=== PATIENT | female | born 1945 | race Two or more races ===

== ENCOUNTER → 2020-05-06 | Outpatient (CLI) | payer MEDICARE ==
[2016-10-02 09:18] VITALS: BP 142/83
[~2020-05-06] MED LIST: AMLO5TAB10 PO; GABA300C18 PO; HYDR-2765 PO; LISI-334 PO; SIMV10TA15 PO
--- NOTE | 2020-05-06 16:42 | RAD ---
Whole body bone scan History: Breast cancer Comparison: None. Procedure: 25.0 mCI of Tc 99m MDP was injected intravenously and delayed scintigraphic images were obtained of the skeletal system. Findings: No abnormal radiopharmaceutical uptake suspicious for bony metastases. There is symmetric uptake in the shoulder joints bilaterally, and the sternoclavicular joints, knees and at the ankles, compatible with degenerative change. Impression: 1. No evidence of bony metastases. Electronically signed by: Devi Goddard MD (05/06/2020 4:39 PM) [id number]
== END | disposition home or self-care (01) ==
LOC: NM 10:05
PROVIDERS: ATTEND Internal Medicine Hematology & Oncology
DX: C50.011 Malignant neoplasm of nipple and areola, right female breast (principal); C50.511 Malignant neoplasm of lower-outer quadrant of right female breast; Z17.1 Estrogen receptor negative status [ER-]
CPT/HCPCS: 78306; A9503

== ENCOUNTER → 2021-01-29 | Outpatient (CLI) | payer MEDICARE ==
[2016-10-02 09:18] VITALS: BP 142/83
[~2021-01-29] MED LIST changes: +AMLO-186 PO; -AMLO5TAB10 PO; -LISI-334 PO; +LISI20TA18 PO
--- NOTE | 2021-01-29 09:58 | RAD ---
EXAM: Left breast diagnostic mammogram with tomosynthesis; left breast sonogram. HISTORY: 75-year-old female presents with a palpable left breast lump. The patient has a history of r ight breast cancer and right mastectomy. TECHNIQUE: Full-field digital craniocaudal and mediolateral oblique 2D and 3D tomosynthesis images of the left breast are obtained for evaluation. Computer aided detection was applied. Sonographic imagi ng of the left breast including the site of palpable concern and surrounding quadrant and axilla was performed. COMPARISON: 06/12/2020 BREAST PARENCHYMAL DENSITY: Level C - Heterogeneously dense. FINDINGS: There has been interval increase in a circumscribed nodule within the 9:00 position of the left breast at the site of palpable concern. There is also nodularity within the subareolar location and lateral breast at mid depth which is slightly more conspicuous compared to the prior study. No stiles spicious calcification is seen. Sonographic imaging of the left breast demonstrates a solid nodule with internal blood flow at the 10 :00 position 6 cm from the nipple measuring 1.1 cm in maximum dimension. This corresponds with the si te of palpable concern and a circumscribed nodule demonstrated mammographically. There is a 5 mm susp ected benign fibrocystic lesion at the 10:00 position 4 cm from the nipple. There is a [address] at the 11:00 position 7 cm from the nipple. There are ectatic and focally dilated ducts within the anterior left breast, primarily at the 11:00 position. There are few surrounding cystic and fibrocys tic lesions. There is a 6 mm hypoechoic lesion with slight angulated margins and slight taller than w maco morphology at the 9:00 position 3.5 cm from the nipple. There is a circumscribed solid appearing nodule at the 9:00 retroareolar location measuring 1.3 cm in maximum dimension. There is surrounding dilated ducts. There is no suspicious axillary lymph node. IMPRESSION: 1. 1.1 cm nodule at the 10:00 position of the left breast 6 cm from the nipple, corresponding with th e site of palpable concern. Sonographic guided biopsy is recommended for definitive diagnosis. 2. 1.3 cm solid-appearing nodule at the 9:00 retroareolar. Sonographic and biopsy is recommended for definitive diagnosis. 3. 6 mm hypoechoic lesion with slight suspicious morphology at the 9:00 position 3.5 cm from the nipp le. Sonographic guided biopsy is recommended for definitive diagnosis. 4. Multiple ectatic and focally dilated ducts and a small benign cysts and fibrocystic lesions, descr ibed above. 5. BI-RADS Category 4: Suspicious abnormality. Sonographic and biopsy is recommended, as described ab fabian. These findings and recommendations were discussed with the patient via an pathology laboratory aides teacher and this inform ation was communicated to Sherrell, the clinical coordinator at the referring physician office, at 095 0 hours on 01/29/2022. If your mammogram demonstrates that you have dense breast tissue, which could hide abnormalities, and if you have other risk factors for breast cancer that have been identified, you might benefit from s upplemental screening tests that may be suggested by your ordering physician. Dense breast tissue, i n and of itself, is a relatively common condition. This information is not provided to cause undue c oncern, but rather to raise your awareness and to promote discussion with your physician regarding th e presence of other risk factors, in addition to dense breast tissue. A report of your mammography re sults will be sent to you and your physician. You should contact your physician if you have any ques tions or concerns regarding this report. Mammography is a sensitive method for finding small breast cancers, but it does not detect them all a nd is not a substitute for careful clinical examination. A negative mammogram does not negate a clin ically suspicious finding and should not result in delay in biopsying a clinically suspicious abnorma lity. PQRS compliance statement - Patient information was entered into a reminder system with a target due date for the next mammogram. "Our facility is accredited by the [employer] Mammography Program." Electronically signed by: Sarah Rome MD (01/29/2021 9:56 AM) [id number]
== END ==
LOC: MAMMO 09:33
PROVIDERS: ATTEND Internal Medicine Hematology & Oncology
DX: N64.4 Mastodynia (principal); N63.22 Unspecified lump in the left breast, upper inner quadrant; Z85.3 Personal history of malignant neoplasm of breast
CPT/HCPCS: 76641; 77065; G0279; 77061

== ENCOUNTER → 2021-02-06 | Outpatient (CLI) | payer MEDICARE ==
[2016-10-02 09:18] VITALS: BP 142/83
[~2021-02-06] MED LIST changes: +FURO-69 PO; +LIDOCAINE 1% Multi-Dose 20 ML VIAL. INJ ONE; +OXYC1TAB15 PO; +POTA20TA4 PO
--- NOTE | 2021-02-06 12:55 | RAD ---
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 Rec [facility] medical oncologic and surgical consultation. 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 This is a benign concordant result. Re commend appropriate clinical management for the concurrently diagnosed malignancy. Electronically signed by: Devi Goddard MD (02/13/2021 2:11 PM) [id number] ORIGINAL REPORT Examination: 1. Ultrasound-guided left breast biopsy of 2 targets 2. Left digital post procedure mammogram. INDICATION: 75-year-old woman initially presented with a palpable lump in the medial left breast was recommended for biopsy of 3 sonographic targets on subsequent diagnostic mammogram and ultrasound. Pe rsonal history of right mastectomy for breast cancer in 2015. COMPARISON: Right breast ultrasound of 01/30/2016, left mammogram of 06/12/2020, left diagnostic mammog jimenez and breast ultrasound of 01/29/2021 FINDINGS: Patient was accompanied by her granddaughter Surekha who also provided interpretive services by pat oanh flores. Informed consent was obtained and an appropriate procedural pause observed. Using stand evy sterile technique, ultrasound guidance and local anesthesia and with confirmation of the location of the area of palpable concern as reported by the patient by direct clinical exam, multiple 14-gaug e core biopsy samples of the oval mass at the left 10:00 position 6 cm from the nipple were obtained and placed in formalin. Hemostasis was ensured with direct breast compression for several minutes aft er which an S-shaped biopsy marker was placed. Thereafter, attention was turned to the next lesion recommended for biopsy at the 9:00 position 3.5 c m from the nipple. Initial attempt at cyst aspiration nearly completely evacuated this lesion with sc ant fluid retrieved. It did not completely dissipate so a single 14-gauge core biopsy sample was obta ined and placed in formalin. Hemostasis was also treated with direct breast compression and a ribbon- shaped biopsy marker was placed at this biopsy site. Finally, attention was turned to the subareolar breast but the questioned mass in the subareolar nina st did not persist, and likely represented intraductal debris that had since dissipated. No attempt a t biopsying the subareolar breast was therefore pursued at this visit. Digital postprocedure mammogram in the CC and true lateral projections show heterogeneously dense garret ast parenchyma and successful biopsy marker deployment in the medial left breast, as described. IMPRESSION: Successful ultrasound-guided left breast core needle biopsy of 2 targets as described. Pathology resu lts are pending. An addendum will be issued once pathology results become available. Electronically signed by: Devi Goddard MD (02/06/2021 12:52 PM) [id number]
--- NOTE | 2021-02-10 15:07 | PATHOLOGY ---
[facility] Accession Number: [id number] . 01 Material submitted: . PART A: breast - LEFT BREAST MASS. Modifiers: left PART B: breast - LEFT BREAST MASS. Modifiers: left . 01 Clinical history: . A: 10 OCLOCK 6 CM FN 1.1CM B: 9 OCLOCK 3.5CM FN .6CM MALIGNANT NEOPLASM . 02 Diagnosis: A. 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 SEE COMMENT. . B. Breast tissue, left breast mass 9:00 needle biopsy. - Stromal fibrosis. (JPM:chavez; 02/10/2021) S 02/10/2021 1443 Local . 02 Comment: Sections of the left breast mass at 10:00 needle biopsy reveal a malignant epithelial neoplasm. The neoplasm is composed of irregular nests and tubular structures floating within lakes of mucin. The surrounding stroma appears reactive and desmoplastic. The tumor cells show moderate nuclear pleomorphism. There are a few mitotic figures. The tumor measures up to 0.8 cm in greatest dimension on the glass side. There is no classic invasive ductal carcinoma. There are no tumor associated calcifications. There is no lymphovascular tumor invasion. The morphologic findings are supportive of the diagnosis of mucinous carcinoma. Breast prognostic studies will be obtained, the results of which will be reported separately. . Sections of the left breast mass at 9:00 needle biopsy reveal a small segment of fibrofatty breast tissue showing focal stromal fibrosis containing a single benign breast duct. There is no evidence of malignancy. . The case is also examined by Dr. Kong, who concurs with the diagnosis. (JPM:chavez; 02/10/2021) . 02 Electronically signed: . Clint Rao MD, Pathologist NPI- [id number] . 01 Gross description: . A. The specimen is received in formalin, labeled "Elias Franco, left breast 10:00 6 cm from nipple". Received are three needle cores of fibrofatty tissue measuring 1.8 x 0.8 x 0.3 cm in aggregate dimensions. The specimen is submitted entirely in cassettes A1 through A3. The cold ischemic time is less than 1 minute. The total formalin fixation time is 11 hours. . B. The specimen is received in formalin, labeled "Elias Franco, left breast 9:00 3.5 cm from nipple". Received is a single needle core of fibrofatty tissue measuring 0.7 x 0.2 x 0.2 cm in greatest dimensions. The specimen is submitted entirely in cassette B1. The cold ischemic time is less than 1 minute. The total formalin fixation time is 10 hours and 40 minutes. ([facility]; 02/07/2021) QA/QA 02/07/2021 1604 Local . 02 Pathologist provided ICD-10: C50.911, N60.32 . 02 CPT . 905856, 154713 Specimen Comment: A courtesy copy of this report has been sent to [phone], [phone] Specimen Comment: [id number], Specimen Comment: Report sent to ,DR HEREDIA / DR GILES Specimen Comment: A duplicate report has been generated due to demographic updates. Performed at: 01 [facility] [place] [address], [place], [place] [id number] MD Ozzie Cedeño MD Phone: [phone] Performed at: 02 [facility] [place] [address] [place], [place] [id number] MD Clint Rao MD Phone: [phone]
== END | disposition home or self-care (01) ==
LOC: US 10:05
PROVIDERS: ATTEND Internal Medicine Hematology & Oncology
DX: R92.8 Other abnormal and inconclusive findings on diagnostic imaging of breast (principal); C50.912 Malignant neoplasm of unspecified site of left female breast; C50.511 Malignant neoplasm of lower-outer quadrant of right female breast; Z17.1 Estrogen receptor negative status [ER-]; N60.32 Fibrosclerosis of left breast
CPT/HCPCS: 19083; 19084; 77065; 88305; C1713; 76942

== ENCOUNTER → 2021-02-13 | Outpatient (CLI) | payer MEDICARE ==
[2016-10-02 09:18] VITALS: BP 142/83
[~2021-02-13] MED LIST changes: -LIDOCAINE 1% Multi-Dose 20 ML VIAL. INJ ONE
== END ==
LOC: LAB 13:54
PROVIDERS: ATTEND Specialist
DX: Z01.812 Encounter for preprocedural laboratory examination (principal); Z20.822 Contact with and (suspected) exposure to COVID-19
CPT/HCPCS: U0003

== ENCOUNTER 2021-02-17 07:07 | Day surgery (SDC) | payer MEDICARE ==
--- NOTE | 2021-02-17 06:50 | PREOP HP ---
DATE OF SERVICE: HISTORY OF PRESENT ILLNESS: The patient's history is that she has had a right mastectomy for cancer of the right breast. This was about a year or two ago. She has had chemotherapy and is over that now. Recently, she had a mammogram, which showed 3 masses of the left breast. She therefore was sent to me. PAST MEDICAL HISTORY: Shows she has hypertension. PAST SURGICAL HISTORY: Shows she has had a hysterectomy and also a cholecystectomy MEDICATIONS: She takes medicines lisinopril and apparently hydrochlorothiazide for hypertension and takes a statin for cholesterol. She has been Dr. Zarate' patient. ALLERGIES: She has no allergies. SOCIAL HISTORY: She does not use alcohol, illegal drugs and does not smoke. PHYSICAL EXAMINATION: GENERAL: Shows an alert female in no acute distress. HEAD, EARS, EYES, NOSE AND THROAT: Grossly normal. CHEST: Clear bilaterally to auscultation. HEART: Had no murmurs, heaves, friction rubs or thrills. BREASTS: The right mastectomy site was normal with no masses and no tenderness, and the axillary area was negative. The left breast, the axillary area was negative with no masses or lymphadenopathy that I can detect and left breast was normal except for medial breast mass about a centimeter or so in size, about 4-5 cm medial to the middle portion of the nipple. Could not feel any masses around the nipple clinically. The mass in the breast that could be palpated was smooth. There was no skin retraction, no dimpling and there was no sense of attachment to the underlying structures as it was freely movable. ABDOMEN: Grossly normal. EXTREMITIES: Grossly normal. She walked and had no problems with that. IMPRESSION: 1. Hypertension. 2. Masses of the left breast. 3. Status post right mastectomy for right breast cancer. PLAN: To follow up with his surgical treatment of the right breast based on the biopsy reports and also the consultation by Dr. Key. TREVA PERSAUD MD DR: ROSALINDA/maricruz JOB#: [id number] / [id number]
[~2021-02-17 07:07] MED LIST changes: +IV RINGERS,LACTATED 1000ML 1,000 ML IV SCH; -OXYC1TAB15 PO; +PROCHLORPERAZINE 10 MG/2 ML VIAL. IVP PRN; +fentaNYL PF VIAL 100 MCG/2 ML VIAL IVP PRN
[2021-02-17] MEDS ORDERED: ISOSULFAN BLUE 1% 50 MG/5 ML VIAL. SQ ONE (07:34)
[2021-02-17] MEDS ORDERED: METHYLENE BLUE 0.5% 10ml AMPULE. ONE (07:34)
[2021-02-17] MEDS ORDERED: fentaNYL PF VIAL 100 MCG/2 ML VIAL ONE (07:55)
[2021-02-17] MEDS ORDERED: ROCURONIUM 50 MG/5 ML VIAL. ONE (08:02)
[2021-02-17] MEDS ORDERED: PROPOFOL 10 MG/ML (20ML) VIAL. IV ONE (08:02)
[2021-02-17] MEDS ORDERED: DEXAMETHASONE SOD PHOS 4 MG/ML VIAL ONE (08:02)
[2021-02-17] MEDS ORDERED: LIDOCAINE 2% PF 5 ML VIAL. ONE (08:02)
[2021-02-17] MEDS ORDERED: ONDANSETRON PF 4 MG/2 ML VIAL. ONE (08:02)
[2021-02-17 08:10] LABS: BASO % 0 % (0-3); EOS # 0.1 x10^3/uL (0.0-0.7); EOS % 2 % (0-3); HEMATOCRIT 43.3 % (36.0-47.0); HEMOGLOBIN 14.3 g/dL (12.0-15.5); LYMPH # 1.6 x10^3/uL (1.0-4.8); LYMPH % 30 % (24-48); MEAN CORPUSCULAR HEMOGLOBIN 29 pg (25-35); MEAN CORPUSCULAR HGB CONC 33 g/dL (31-37); MEAN CORPUSCULAR VOLUME 89 fL (79-100); MONO # 0.4 x10^3/uL (0.0-1.1); MONO % 8 % (0-9); NEUT # 3.2 x10^3/uL (1.8-7.7); NEUT % 60 % (31-73); PLATELET COUNT 175 x10^3/uL (140-400); RED BLOOD COUNT 4.87 x10^6/uL (3.50-5.40); WHITE BLOOD COUNT 5.4 x10^3/uL (4.0-11.0)
[2021-02-17 08:14] LABS: CALCIUM 8.6 mg/dL (8.5-10.1); CREATININE 0.8 mg/dL (0.6-1.0); GFR 70.3; POTASSIUM 3.8 mmol/L (3.5-5.1)
[2021-02-17 08:20] LABS: PROTHROMBIN TIME PATIENT 12.7 SEC (11.7-14.0)
[2021-02-17 08:21] LABS: ALBUMIN 3.3 g/dL (3.4-5.0); ALBUMIN/GLOBULIN RATIO 0.8 (1.0-1.7); TOTAL BILIRUBIN 0.7 mg/dL (0.2-1.0); TOTAL PROTEIN 7.2 g/dL (6.4-8.2)
--- NOTE | 2021-02-17 09:05 | PDOC ---
SURGICAL PROGRESS NOTE DATE: 02/17/21 TIME: 09:04 No change in dictated H&P. Vital Signs Vital Signs Date Time Temp Pulse Resp B/P (MAP) Pulse Ox O2 Delivery O2 Flow Rate FiO2 02/17/21 07:36 97.8 102 20 162/89 97 Room Air 97.8 Labs Laboratory Tests Test 02/17/21 07:55 White Blood Count 5.4 x10^3/uL (4.0-11.0) Red Blood Count 4.87 x10^6/uL (3.50-5.40) Hemoglobin 14.3 g/dL (12.0-15.5) Hematocrit 43.3 % (36.0-47.0) Mean Corpuscular Volume 89 fL (79-100) Mean Corpuscular Hemoglobin 29 pg (25-35) Mean Corpuscular Hemoglobin Concent 33 g/dL (31-37) Red Cell Distribution Width 13.0 % (11.5-14.5) Platelet Count 175 x10^3/uL (140-400) Neutrophils (%) (Auto) 60 % (31-73) Lymphocytes (%) (Auto) 30 % (24-48) Monocytes (%) (Auto) 8 % (0-9) Eosinophils (%) (Auto) 2 % (0-3) Basophils (%) (Auto) 0 % (0-3) Neutrophils # (Auto) 3.2 x10^3/uL (1.8-7.7) Lymphocytes # (Auto) 1.6 x10^3/uL (1.0-4.8) Monocytes # (Auto) 0.4 x10^3/uL (0.0-1.1) Eosinophils # (Auto) 0.1 x10^3/uL (0.0-0.7) Basophils # (Auto) 0.0 x10^3/uL (0.0-0.2) Prothrombin Time 12.7 SEC (11.7-14.0) Prothromb Time International Ratio 1.0 (0.8-1.1) Sodium Level 142 mmol/L (136-145) Potassium Level 3.8 mmol/L (3.5-5.1) Chloride Level 107 mmol/L (98-107) Carbon Dioxide Level 24 mmol/L (21-32) Anion Gap 11 (6-14) Blood Urea Nitrogen 19 mg/dL (7-20) Creatinine 0.8 mg/dL (0.6-1.0) Estimated GFR (Cockcroft-Gault) 70.3 BUN/Creatinine Ratio 24 (6-20) Glucose Level 114 mg/dL (70-99) Calcium Level 8.6 mg/dL (8.5-10.1) Total Bilirubin 0.7 mg/dL (0.2-1.0) Aspartate Amino Transf (AST/SGOT) 16 U/L (15-37) Alanine Aminotransferase (ALT/SGPT) 17 U/L (14-59) Alkaline Phosphatase 68 U/L (46-116) Total Protein 7.2 g/dL (6.4-8.2) Albumin 3.3 g/dL (3.4-5.0) Albumin/Globulin Ratio 0.8 (1.0-1.7) Laboratory Tests Test 02/17/21 07:55 White Blood Count 5.4 x10^3/uL (4.0-11.0) Red Blood Count 4.87 x10^6/uL (3.50-5.40) Hemoglobin 14.3 g/dL (12.0-15.5) Hematocrit 43.3 % (36.0-47.0) Mean Corpuscular Volume 89 fL (79-100) Mean Corpuscular Hemoglobin 29 pg (25-35) Mean Corpuscular Hemoglobin Concent 33 g/dL (31-37) Red Cell Distribution Width 13.0 % (11.5-14.5) Platelet Count 175 x10^3/uL (140-400) Neutrophils (%) (Auto) 60 % (31-73) Lymphocytes (%) (Auto) 30 % (24-48) Monocytes (%) (Auto) 8 % (0-9) Eosinophils (%) (Auto) 2 % (0-3) Basophils (%) (Auto) 0 % (0-3) Neutrophils # (Auto) 3.2 x10^3/uL (1.8-7.7) Lymphocytes # (Auto) 1.6 x10^3/uL (1.0-4.8) Monocytes # (Auto) 0.4 x10^3/uL (0.0-1.1) Eosinophils # (Auto) 0.1 x10^3/uL (0.0-0.7) Basophils # (Auto) 0.0 x10^3/uL (0.0-0.2) Prothrombin Time 12.7 SEC (11.7-14.0) Prothromb Time International Ratio 1.0 (0.8-1.1) Sodium Level 142 mmol/L (136-145) Potassium Level 3.8 mmol/L (3.5-5.1) Chloride Level 107 mmol/L (98-107) Carbon Dioxide Level 24 mmol/L (21-32) Anion Gap 11 (6-14) Blood Urea Nitrogen 19 mg/dL (7-20) Creatinine 0.8 mg/dL (0.6-1.0) Estimated GFR (Cockcroft-Gault) 70.3 BUN/Creatinine Ratio 24 (6-20) Glucose Level 114 mg/dL (70-99) Calcium Level 8.6 mg/dL (8.5-10.1) Total Bilirubin 0.7 mg/dL (0.2-1.0) Aspartate Amino Transf (AST/SGOT) 16 U/L (15-37) Alanine Aminotransferase (ALT/SGPT) 17 U/L (14-59) Alkaline Phosphatase 68 U/L (46-116) Total Protein 7.2 g/dL (6.4-8.2) Albumin 3.3 g/dL (3.4-5.0) Albumin/Globulin Ratio 0.8 (1.0-1.7) Justicifation of Admission Dx: Justifications for Admission: Justification of Admission Dx: Yes TREVA PERSAUD MD Feb 17, 2021 09:05
--- NOTE | 2021-02-17 09:08 | PDOC ---
SURGICAL PROGRESS NOTE DATE: 02/17/21 TIME: 09:05 Op NOTE: Surgeon................................................Persaud Pre opr diag...........................................CA left breast Post op diag..........................................same Anesthesia............................................general Procedure.............................................Mastectomy left with sentinel node excision with low axillary dissection o left. Drains..................................................large von drain x 2 Blood loss.............................................25cc Fluids..................................................see anesthesia sheet Condition.............................................Satisfactory Vital Signs Vital Signs Date Time Temp Pulse Resp B/P (MAP) Pulse Ox O2 Delivery O2 Flow Rate FiO2 02/17/21 07:36 97.8 102 20 162/89 97 Room Air 97.8 Labs Laboratory Tests Test 02/17/21 07:55 White Blood Count 5.4 x10^3/uL (4.0-11.0) Red Blood Count 4.87 x10^6/uL (3.50-5.40) Hemoglobin 14.3 g/dL (12.0-15.5) Hematocrit 43.3 % (36.0-47.0) Mean Corpuscular Volume 89 fL (79-100) Mean Corpuscular Hemoglobin 29 pg (25-35) Mean Corpuscular Hemoglobin Concent 33 g/dL (31-37) Red Cell Distribution Width 13.0 % (11.5-14.5) Platelet Count 175 x10^3/uL (140-400) Neutrophils (%) (Auto) 60 % (31-73) Lymphocytes (%) (Auto) 30 % (24-48) Monocytes (%) (Auto) 8 % (0-9) Eosinophils (%) (Auto) 2 % (0-3) Basophils (%) (Auto) 0 % (0-3) Neutrophils # (Auto) 3.2 x10^3/uL (1.8-7.7) Lymphocytes # (Auto) 1.6 x10^3/uL (1.0-4.8) Monocytes # (Auto) 0.4 x10^3/uL (0.0-1.1) Eosinophils # (Auto) 0.1 x10^3/uL (0.0-0.7) Basophils # (Auto) 0.0 x10^3/uL (0.0-0.2) Prothrombin Time 12.7 SEC (11.7-14.0) Prothromb Time International Ratio 1.0 (0.8-1.1) Sodium Level 142 mmol/L (136-145) Potassium Level 3.8 mmol/L (3.5-5.1) Chloride Level 107 mmol/L (98-107) Carbon Dioxide Level 24 mmol/L (21-32) Anion Gap 11 (6-14) Blood Urea Nitrogen 19 mg/dL (7-20) Creatinine 0.8 mg/dL (0.6-1.0) Estimated GFR (Cockcroft-Gault) 70.3 BUN/Creatinine Ratio 24 (6-20) Glucose Level 114 mg/dL (70-99) Calcium Level 8.6 mg/dL (8.5-10.1) Total Bilirubin 0.7 mg/dL (0.2-1.0) Aspartate Amino Transf (AST/SGOT) 16 U/L (15-37) Alanine Aminotransferase (ALT/SGPT) 17 U/L (14-59) Alkaline Phosphatase 68 U/L (46-116) Total Protein 7.2 g/dL (6.4-8.2) Albumin 3.3 g/dL (3.4-5.0) Albumin/Globulin Ratio 0.8 (1.0-1.7) Laboratory Tests Test 02/17/21 07:55 White Blood Count 5.4 x10^3/uL (4.0-11.0) Red Blood Count 4.87 x10^6/uL (3.50-5.40) Hemoglobin 14.3 g/dL (12.0-15.5) Hematocrit 43.3 % (36.0-47.0) Mean Corpuscular Volume 89 fL (79-100) Mean Corpuscular Hemoglobin 29 pg (25-35) Mean Corpuscular Hemoglobin Concent 33 g/dL (31-37) Red Cell Distribution Width 13.0 % (11.5-14.5) Platelet Count 175 x10^3/uL (140-400) Neutrophils (%) (Auto) 60 % (31-73) Lymphocytes (%) (Auto) 30 % (24-48) Monocytes (%) (Auto) 8 % (0-9) Eosinophils (%) (Auto) 2 % (0-3) Basophils (%) (Auto) 0 % (0-3) Neutrophils # (Auto) 3.2 x10^3/uL (1.8-7.7) Lymphocytes # (Auto) 1.6 x10^3/uL (1.0-4.8) Monocytes # (Auto) 0.4 x10^3/uL (0.0-1.1) Eosinophils # (Auto) 0.1 x10^3/uL (0.0-0.7) Basophils # (Auto) 0.0 x10^3/uL (0.0-0.2) Prothrombin Time 12.7 SEC (11.7-14.0) Prothromb Time International Ratio 1.0 (0.8-1.1) Sodium Level 142 mmol/L (136-145) Potassium Level 3.8 mmol/L (3.5-5.1) Chloride Level 107 mmol/L (98-107) Carbon Dioxide Level 24 mmol/L (21-32) Anion Gap 11 (6-14) Blood Urea Nitrogen 19 mg/dL (7-20) Creatinine 0.8 mg/dL (0.6-1.0) Estimated GFR (Cockcroft-Gault) 70.3 BUN/Creatinine Ratio 24 (6-20) Glucose Level 114 mg/dL (70-99) Calcium Level 8.6 mg/dL (8.5-10.1) Total Bilirubin 0.7 mg/dL (0.2-1.0) Aspartate Amino Transf (AST/SGOT) 16 U/L (15-37) Alanine Aminotransferase (ALT/SGPT) 17 U/L (14-59) Alkaline Phosphatase 68 U/L (46-116) Total Protein 7.2 g/dL (6.4-8.2) Albumin 3.3 g/dL (3.4-5.0) Albumin/Globulin Ratio 0.8 (1.0-1.7) Justicifation of Admission Dx: Justifications for Admission: Justification of Admission Dx: Yes TREVA PERSAUD MD Feb 17, 2021 09:08
[2021-02-17] MEDS ORDERED: PHENYLEPHRINE in 0.9% NACL PF 1 MG/10 ML SYRINGE. IV ONE (09:32)
[2021-02-17] MEDS ORDERED: ePHEDrine PF IN SALINE 50 MG/10 ML SYRINGE. IV ONE (09:44)
[2021-02-17] MEDS ORDERED: GLYCOPYRROLATE 1 MG/5 ML VIAL. ONE (10:55)
[2021-02-17] MEDS ORDERED: NEOSTIGMINE METHYLSULFATE 5 MG/5 ML SYRINGE. ONE (10:55)
--- NOTE | 2021-02-17 12:18 | DISCH ---
DISCHARGE INSTRUCTIONS Condition on Discharge Condition on Discharge: Stable Activity After Discharge Activity Instructions for Disc: Avoid exertion Lifting Instructions after Dis: No heavy lifting, No pulling or pushing, Do not lift >10 pounds Driving Instructions after Dis: Do not drive Diet after Discharge Diet after Discharge: Clear Liquid, Regular Wound Incision Care Wound/Incision Care: Keep wound/cast CDI Other wound/incision instructi: keep wound dry and clean..reinforce as needed Wound Care Equipment: Dressings Contacting the DR. after DC Call your doctor for: Concerns you may have Follow-Up Follow up with: make appt to see me in 1 week TREVA PERSAUD MD Feb 17, 2021 12:18
[2021-02-17] MEDS ORDERED: OXYC1TAB15 PO (12:23)
[2021-02-17] MEDS ORDERED: MORPHINE SULFATE 2 MG/ML VIAL. ONE (12:23)
[2021-02-17] MEDS: MORPHINE SULFATE 2 MG/ML VIAL. IVP PRN ×2 (12:24→12:42)
[2021-02-17] MEDS ORDERED: HYDROmorphone 2 MG/ML VIAL ONE (12:47)
[2021-02-17] MEDS: HYDROmorphone 2 MG/ML VIAL IVP PRN ×2 (12:49→13:06)
[2021-02-17] MEDS ORDERED: oxyCODONE/APAP 5/325 1 TAB TABLET PO ONE (13:00)
[2021-02-17] MEDS ORDERED: oxyCODONE/APAP 5/325 1 TAB TABLET ONE (13:23)
[2021-02-17 13:27] VITALS: BP 129/73
[2021-02-17] MEDS ORDERED: PROCHLORPERAZINE 10 MG/2 ML VIAL. ONE (13:48)
--- NOTE | 2021-02-17 15:54 | RAD ---
Examination: Left breast radiopharmaceutical injection for sentinel node mapping INDICATION: 75-year-old woman with recent diagnosis of mucinous carcinoma in the medial left breast r eferred for radiopharmaceutical injection prior to definitive surgical management. COMPARISON: Left postprocedure mammogram of 02/06/2021 TECHNIQUE AND FINDINGS: Informed consent was obtained and an appropriate procedural pause observed. Patient's granddaughter w as present by patient request and served as a editor at large. A single medial left breast hypodermic inje ction of 900 uCi of technetium labeled tilmanocept day pharmaceutical was administered in the periare olar breast in the wheal was massaged. This occurred at approximately 8:30 AM on 02/17/2021. No images were acquired. Patient tolerated the procedure without incident and she was subsequently tr ansported to the perioperative care unit for further management under her referring surgeon's supervi ruth. IMPRESSION: Successful uncomplicated left breast radiopharmaceutical injection for sentinel node mapping as descr ibed. Electronically signed by: Devi Goddard MD (02/17/2021 3:52 PM) [id number]
--- NOTE | 2021-02-18 12:04 | OP ---
DATE OF SURGERY: 02/17/2021 SURGEON: Mariano Persaud MD PREOPERATIVE DIAGNOSIS: Cancer of the left breast. POSTOPERATIVE DIAGNOSIS: Cancer of the left breast. ANESTHESIA: General. PROCEDURE: Mastectomy with low axillary dissection and sentinel node biopsy. TECHNIQUE: Under general anesthesia, the patient was properly prepped and draped in a routine fashion. The patient had had injection of radioactive material so we could do the sentinel node biopsy. As such, we proceeded to outline and make the incision for the mastectomy and in fact decided, we would do portions of that first. We therefore made a fusiform incision encompassing the breast at appropriate places, in a manner so that she would have ____ that would be left though the breast tissue would be removed. We made this incision with a 10 blade and around the superior portion of the breast over to the axilla and under the breast to the right axilla, had a place marked so that we could close the skin without tension. We went through the skin and then placed Darlyn clamps on the skin edges superiorly on the patient's side and then used cautery to divide the tissues from the breast. Pulling up on these, we slowly mobilized the breast and got to the pectoralis major muscle, well above the breast and then took this over past into the axilla. Inferiorly, we did the same and then raised the breast and took it off the pectoralis major muscle, taking the fascia along with this. We did not enter the previous biopsy sites where she had biopsy proven carcinoma of the breast. We got laterally and then we used the system to identify the lymph nodes. This was difficult as the machine had to be recalibrated. We did finally, after dissecting the axilla quite a bit, removed 2 or 3 lymph nodes. We did do the lymph node that was very hot and removed it and when we got it out, it was still hot per the machine and this was sent to pathology. We sent 2-3 lymph nodes. They all came back from frozen section to be without cancer and as such, we did not do the axillary dissection. We then amputated the breast, completed the mastectomy, amputated the breast from the chest wall. The resultant defect was inspected and then irrigated with sterile water. We then closed the deep dermis and deeper tissues using interrupted 2-0 Vicryl and the skin was closed using a skin stapler, but before the wound was closed, we did place a large Manfred drain medially coming out the inferior flap over the pectoralis major muscle and one inferior flap laterally going up to the axilla. These were sutured in place with 2-0 silk. The wound now having been closed and the #2 silk used to tie the catheters on to the bulbs, the suction was good and all the tissue was flat against the anterior chest wall. The procedure was now terminated as sterile dressing was applied. There were some bleeders that were cauterized during the procedure, but we did not have to suture ligate any. We then applied the dressing and the procedure was terminated. The blood loss was probably 20-25 mL. Fluids given can be obtained from the anesthesia sheet. No drains were used and the condition of the patient was satisfactory as she has returned to the recovery room. MARIANO PERSAUD MD DR: [email or web address] JOB#: [id number] / [id number]
== END 2021-02-17 14:07 | disposition home or self-care (01) ==
LOC: SURG 07:07
PROVIDERS: ATTEND Specialist
DX: C50.912 Malignant neoplasm of unspecified site of left female breast (principal); E78.00 Pure hypercholesterolemia, unspecified; I10 Essential (primary) hypertension; E66.9 Obesity, unspecified; Z79.899 Other long term (current) drug therapy; Z98.890 Other specified postprocedural states
CPT/HCPCS: 19301; 36415; 38505; 38792; 80053; 85025; 85610; 96374; A4930; A6253; A6402; A6403; A9520; J0780; J1100; J1170; J2270; J2370; J2405; J2704; J2710; J3010; J3490; A6443; Q9968